=== PATIENT | male | born 1955 | race Caucasian/White ===

== ENCOUNTER 2024-02-22 10:06 | Emergency (ER) | payer OTHER ==
[~2024-02-22] VITALS: Ht 180.3 cm; Wt 73.0 kg
[2024-02-22 10:10] VITALS: BP 148/95; PULSE 78; RESP 16; TEMP 97.7; O2SAT 97
[2024-02-22] MEDS ORDERED: ACETAMINOPHEN WITH CODEINE 300/30MG TABLET PO ONE (10:30)
[2024-02-22] MEDS ORDERED: KETOROLAC 30MG/ML VIAL IM ONE (10:30)
== END 2024-02-22 12:23 | disposition left against medical advice (07) ==
LOC: ER 10:06
DX: M54.50 Low back pain, unspecified (principal); E78.00 Pure hypercholesterolemia, unspecified; Z53.21 Procedure and treatment not carried out due to patient leaving prior to being seen by health care provider
CPT/HCPCS: 99283